=== PATIENT | male | born 1965 | race Caucasian/White ===

== ENCOUNTER 2016-04-12 11:41 | Emergency (ER) | payer BC, OTHER ==
[2016-04-12 11:57] VITALS: BP 137/84
[2016-04-12] MEDS ORDERED: Tetan/Diph/Pertus SYR(Tdap)* 0.5 ML SYR(BOOSTRIX) use SYR IM ONE (12:26)
[2016-04-12] MEDS ORDERED: HYDROcodone/ACETAMIN 5-325 MG* 1 TAB PO ONE (12:26)
--- NOTE | 2016-04-12 12:27 | ED ---
Upper Extremity Pain - History of Current Complaint Chief Complaint: EDExtremityUpper Stated Complaint: LT HAND &FINGER CRUSHED Hx Obtained From: Patient Mechanism Of Injury: Unknown - L hand became trapped betwenn 2 heavy objects and pat pulled his gloved hand out from between them Onset/Duration: Started Hours Ago - 1 Timing: Constant Severity Initially: Moderate Severity Currently: Moderate Pain Location: Hand - L 4th& 5th fingers, dorsal hand Character: Throbbing, Stiffness Aggravating Factor(s): Movement Alleviating Factor(s): Rest Associated Signs & Symptoms: Positive: Swelling, Other - open wounds - Allergies/Home Medications Allergies/Adverse Reactions: Allergies Allergy/AdvReac Type Severity Reaction Status Date / Time No Known Allergies Allergy Verified 04/12/16 11:57 PMH/Surg Hx/FS Hx/Imm Hx Previously Healthy: Yes Endocrine/Hematology History: Denies: Other Endocrine/Hematological Disorders Cardiovascular History: Denies: Other Cardiovascular Problems/Disorders Respiratory History: Denies: Other Respiratory Problems/Disorders GI History: Denies: Other GI Disorders Musculoskeletal History: Denies: Other Musculoskeletal History Neurological History: Denies: Other Neuro Impairments/Disorders Psychiatric History: Denies: Hx Anxiety, Hx Depression - Immunization History Immunizations Up to Date: No - last Tdap > 10y Infectious Disease History: No Infectious Disease History: Denies: Traveled Outside the [place] in Last 30 Days - Family History Known Family History: Positive: None - Social History Occupation: Employed Full-time Lives: With Family Alcohol Use: Occasionally Hx Substance Use: No Hx Tobacco Use: No Review of Systems Constitutional: Negative Cardiovascular: Negative Respiratory: Negative Gastrointestinal: Negative Musculoskeletal: Other - L hand pain-L hand dominate Positive: Other - cut on affected fingers Neurological: Negative Psychological: Normal All Other Systems Reviewed And Are Negative: Yes Physical Exam Triage Information Reviewed: Yes Vital Signs On Initial Exam: Initial Vitals Temp Pulse Resp BP Pulse Ox 97.7 F 87 16 137/84 100 04/12/16 11:45 04/12/16 11:45 04/12/16 11:45 04/12/16 11:45 04/12/16 11:45 Vital Signs Reviewed: Yes Appearance: Positive: Well-Appearing, No Pain Distress, Well-Nourished Skin: Positive: Warm, Skin Color Reflects Adequate Perfusion, Dry Respiratory/Lung Sounds: Positive: Clear to Auscultation Cardiovascular: Positive: Normal, RRR, Pulses are Symmetrical in both Upper and Lower Extremities Musculoskeletal: Positive: Abnormal @ - decreased ROM L 5th finger, lac on 5th finger, abrasion 4th finger, no gross deformity Neurological: Positive: Normal, Sensory/Motor Intact, Alert, Oriented to Person Place, Time Psychiatric: Positive: Normal Procedures - Laceration/Wound Repair 1 Location: upper extremity - volar L 5th finger Description: Stellate Anesthesia: Local, 2.0%, Lido Length, Depth and Shape: 1.5cm long. 5mm wide. 3mm deep Betadine Prep?: Yes Irrigated w/ Saline (ccs): 30 Laceration/Wound Explored: foreign body removed - black specs Closure: Single Layer Debridement: minimal Suture Type: Prolene - 4.0 Number of Sutures: 7 Layer Closure?: No Sterile Dressing Applied?: Yes - bacitracin, tube gauze with alfoam finger splint Diagnostics - Vital Signs Vital Signs Temp Pulse Resp BP Pulse Ox 04/12/16 11:45 97.7 F 87 16 137/84 100 - Laboratory Lab Statement: Any lab studies that have been ordered have been reviewed, and results considered in the medical decision making process. Course/Dx - Diagnoses Differential Diagnosis/HQI/PQRI: Positive: Fracture (Open), Fracture (Closed), Laceration, Strain Provider Diagnoses: Laceration, Contusion Discharge - Discharge Plan Condition: Good Disposition: HOME Prescriptions: Cephalexin CAP* [Keflex 500 CAP*] 500 mg PO TID #30 cap Patient Education Materials: Care For Your Stitches (ED), Laceration (ED), Contusion in Adults (ED) Referrals: No Primary Care Phys,NOPCP [Primary Care Provider] - Additional Instructions: Ice and elevate your hand/finger keep wound clean and dry use splint for 1 week use ibuprofen 800mg every 6 hours as needed for pain Take your antibiotic as prescribed Have sutures removed in 10 days
--- NOTE | 2016-04-12 13:24 | RAD ---
INDICATION: Left hand pain COMPARISON: None TECHNIQUE: AP, lateral, and oblique views were obtained. FINDINGS: The bony structures, joint spaces, and soft tissues are normal for age. IMPRESSION: NO ACUTE FRACTURE.
== END 2016-04-12 15:00 | disposition home or self-care (01) ==
LOC: ED 11:41
DX: S67.22XD Crushing injury of left hand, subsequent encounter (principal); S61.217D Laceration without foreign body of left little finger without damage to nail, subsequent encounter; S67.195D Crushing injury of left ring finger, subsequent encounter; S67.197D Crushing injury of left little finger, subsequent encounter; S60.222A Contusion of left hand, initial encounter; W23.0XXA Caught, crushed, jammed, or pinched between moving objects, initial encounter; Y93.9 Activity, unspecified; Y92.9 Unspecified place or not applicable; Y99.9 Unspecified external cause status
CPT/HCPCS: 12031; 90471; 90715; 99283